=== PATIENT | female | born 1965 | race Caucasian/White ===

== ENCOUNTER 2019-08-13 17:24 | Emergency (ER) | payer OTHER, SELFPAY ==
[2019-08-13 17:32] VITALS: BP 116/72; PULSE 104; RESP 20; TEMP 36.8; O2SAT 95
--- NOTE | 2019-08-13 18:02 | ED.NAVMDI ---
HPI - Nausea/Vomiting/Diarrhea General Chief complaint: Nausea/Vomiting/Diarrhea Stated complaint: Nausea Time Seen by Provider: 08/13/19 17:48 Source: patient and RN notes reviewed Mode of arrival: ambulatory Limitations: no limitations History of Present Illness HPI Narrative: Patient presents today complaining of a 2-day history of body aches, fever up to 104, nausea, vomiting, diarrhea, headache. She denies abdominal pain, dizziness, vision changes, cough, sore throat, nasal congestion. At onset, her diarrhea was coming every 5 to 10 minutes. Today, it is at least twice per hour. She has been able to take small amounts of water and Coca-Cola, but has not had food for the last couple of days. She has been using Tylenol, warm baths, and ice packs on her head to help decrease the fever. States she is putting out some urine. Denies urinary symptoms. MD elicited complaint: nausea, vomiting and diarrhea Related Data Home Medications Medication Instructions Recorded Confirmed Rhinocort Allergy 08/13/19 albuterol sulfate [ProAir HFA] INHALATION 08/13/19 benralizumab [Fasenra] mg SUBCUT 08/13/19 budesonide-formoterol [Symbicort] INHALATION 08/13/19 ergocalciferol (vitamin D2) 08/13/19 [Vitamin D2] ipratropium-albuterol ml INHALATION 08/13/19 linaclotide [Linzess] mcg 08/13/19 mepolizumab [Nucala] mg SUBCUT 08/13/19 metformin mg PO 08/13/19 montelukast mg 08/13/19 omeprazole 08/13/19 rifaximin [Xifaxan] mg 08/13/19 08/13/19 rosuvastatin mg 08/13/19 Allergies Allergy/AdvReac Type Severity Reaction Status Date / Time amoxicillin Allergy Unknown Verified 02/21/16 10:39 clavulanic acid Allergy Unknown Verified 02/21/16 10:39 Review of Systems Review of Systems: Narrative: CONSTITUTIONAL: + Fever, body aches, chills and sweats EYES: Denies visual changes, redness, or discharge. ENT: Denies rhinorrhea, congestion, sore throat, or otalgia. CARDIOVASCULAR: Denies chest pain, palpitations, or edema. RESPIRATORY: Denies cough or dyspnea. GASTROINTESTINAL: Denies abdominal pain. + Nausea, vomiting, diarrhea GENITOURINARY: Denies dysuria or hematuria. SKIN: Denies rash, itching, or wounds. MUSCULOSKELETAL: Denies back pain, joint pain, or myalgia. NEUROLOGIC: Denies numbness, tingling, or weakness.+ Headache PSYCH: Denies depression or anxiety. [facility] Past Medical History Medical History (Updated 08/14/19 @ 00:00 by Background Daemon) Eosinophilic asthma Comments At time of signature, I have reviewed and agree with nursing past medical, surgical, social and family history unless otherwise noted. Please see nursing chart for further information. There is no relevant family history pertinent to the presenting complaint Exam Narrative: Exam Narrative: GENERAL: Ill-appearing, well-nourished, and in no acute distress. HEAD: Normocephalic, atraumatic. EYES: EOMI. No redness or drainage. Conjunctivae normal. ENT: Mucous membranes pink and moist. Nares clear. No rhinorrhea. TMs normal bilaterally. Throat normal. Uvula midline. NECK: Normal AROM. Supple. No lymphadenopathy. CHEST: No respiratory distress. Clear to auscultation. HEART: Regular rhythm. + Tachycardia. No murmur appreciated. Normal peripheral pulses. ABDOMEN: Soft, nontender, nondistended, normal active bowel sounds. MUSCULOSKELETAL: No bony tenderness. EXTREMITIES: Normal range of motion. No edema. SKIN: Warm, dry, no rash. NEURO: No focal deficits. Alert and oriented x3. Gait steady. PSYCH: Normal affect. No signs of depression or anxiety. Course Course Emergency Course: Patient states she is not feeling better after Zofran. Discussed options to go to the ER for IV fluids and further evaluation. Patient declines transfer and states she would like to go home with prescription for some nausea medication and states she will go to the ER immediately if symptoms worsen. Vital Signs Vital signs: Vital Signs Temperature 98.2 F
[2019-08-13] MEDS: ONDANSETRON HCL ODT 4 MG TABLET 8 MG SUBLINGUAL (18:13)
== END 2019-08-13 19:00 | disposition home or self-care (01) ==
PROVIDERS: Emergency Provider Nurse Practitioner
DX: R11.2 Nausea with vomiting, unspecified (principal); R19.7 Diarrhea, unspecified; R50.9 Fever, unspecified; J82 Pulmonary eosinophilia, not elsewhere classified; K21.9 Gastro-esophageal reflux disease without esophagitis; K27.9 Peptic ulcer, site unspecified, unspecified as acute or chronic, without hemorrhage or perforation; E11.9 Type 2 diabetes mellitus without complications
CPT/HCPCS: 87081; 87804; 87880; 99213; A9270; G0463